=== PATIENT | male | born 1985 | race Caucasian/White ===

== ENCOUNTER 2022-03-14 18:38 | Emergency (ER) | payer BC ==
[2022-03-14 19:02] VITALS: TEMP 98.1
[2022-03-14] MEDS ORDERED: SODIUM CHLORIDE 0.9% 1,000 ML IV STA (19:07)
[2022-03-14] MEDS ORDERED: KETOROLAC 15 MG/ML 1 ML VIAL IVP STA (19:47)
--- NOTE | 2022-03-14 19:48 | ED ---
Abdominal Pain HPI - General Chief Complaint: Abdominal Pain Stated Complaint: rt sided flank pain Time Seen by Provider: 03/14/22 19:06 Source: patient, RN notes reviewed Mode of arrival: ambulatory Limitations: no limitations - History of Present Illness Initial Comments: This is a pleasant 36-year-old male who comes in complaining of recurrent right flank and right CVA type pain which started on February 17. No alleviating factors. It might be exacerbated by food. Patient states she is had some mild constipation which she is using laxatives for. No problems with urination. No fever. No headache, no fever or chills, no changes in vision or hearing, no sore throat or difficulty with speech, no neck pain, no chest pain or shortness of breath, no abdominal pain, no vomiting, no changes in urination, no numbness or tingling, no extremity pain, no skin rashes or lesions. Past medical, surgical, social, and family history reviewed. - Related Data Home Medications Medication Instructions Recorded Confirmed Albuterol Sulfate [Albuterol 2 puff PO RT-Q6H PRN 03/14/22 03/14/22 Sulfate Hfa] Buprenorphine HCl/Naloxone HCl 0.5 film SL BID 03/14/22 03/14/22 [Suboxone 8 mg-2 mg Sl Film] Previous Rx's Medication Instructions Recorded Ketorolac [Toradol] 10 mg PO Q6HR PRN #16 tab 03/14/22 Sulfamethox-Tmp 800-160Mg [Bactrim 1 tab PO Q12HR #14 tab 03/14/22 DS 800-160 mg] Tamsulosin [Flomax] 0.4 mg PO DAILY #5 cap 03/14/22 Allergies Allergy/AdvReac Type Severity Reaction Status Date / Time No Known Allergies Allergy Verified 03/14/22 22:17 Review of Systems ROS Statement: Those systems with pertinent positive or pertinent negative responses have been documented in the HPI. ROS Other: All systems not noted in ROS Statement are negative. Past Medical History Past Medical History: No Reported History History of Any Multi-Drug Resistant Organisms: None Reported Additional Past Surgical History / Comment(s): VOCAL CORD SURGERY Past Psychological History: No Psychological Hx Reported Smoking Status: Never smoker Past Alcohol Use History: None Reported Past Drug Use History: None Reported General Exam Limitations: no limitations General appearance: alert, in no apparent distress Head exam: Present: atraumatic, normocephalic, normal inspection Eye exam: Present: normal appearance, PERRL, EOMI. Absent: scleral icterus, conjunctival injection, periorbital swelling ENT exam: Present: normal exam, mucous membranes moist Neck exam: Present: normal inspection, full ROM. Absent: tenderness, meningismus, lymphadenopathy Respiratory exam: Present: normal lung sounds bilaterally. Absent: respiratory distress, wheezes, rales, rhonchi, stridor Cardiovascular Exam: Present: regular rate, normal rhythm, normal heart sounds. Absent: systolic murmur, diastolic murmur, rubs, gallop, clicks GI/Abdominal exam: Present: soft, tenderness (Patient has significant tenderness to the right upper quadrant on palpation with guarding.), normal bowel sounds. Absent: distended, guarding, rebound, rigid Extremities exam: Present: normal inspection, full ROM, normal capillary refill. Absent: tenderness, pedal edema, joint swelling, calf tenderness Back exam: Present: normal inspection, CVA tenderness (R). Absent: CVA tenderness (L) Neurological exam: Present: alert, oriented X3, CN II-XII intact Psychiatric exam: Present: normal affect, normal mood Skin exam: Present: warm, dry, intact, normal color. Absent: rash Course Vital Signs 03/14/22 03/14/22 03/14/22 18:58 21:08 22:38 Temperature 98.1 F Pulse Rate 94 68 100 Respiratory 16 16 20 Rate Blood Pressure 144/86 135/92 139/77 O2 Sat by Pulse 97 98 97 Oximetry - Reevaluation(s) Reevaluation #1: 03/14/22 22:18 Patient's urine came back with a significant number of white blood cells. There was also twice as many red blood cells. This does raise a suspicion of ureteral stone. Patient also had some haziness on ultrasound dictating probable hydronephrosis of the right kidney. Computed tomography scan abdomen and pel vis ordered. Rocephin 1 g IV push ordered. Reevaluation #2: 03/14/22 23:43 Patient much improved at discharge. Medical Decision Making - Medical Decision Making This is a 36-year-old male who presents with recurrent right upper quadrant and right flank pain. Seems to be consistent with gallbladder disease. Patient relates this to eating at times. Ureteral colic also within the differential. It does not appear to be consistent with cardiopulmonary disease. We'll order a gallbladder ultrasound, x-ray, abdominal workup, plan for reevaluation. Not consistent with vascular etiology.. - Lab Data Result diagrams: 03/14/22 19:28 03/14/22 19: Lab Results 03/14/22 03/14/22 03/14/22 Range/Units 19:28 19:28 19:28 WBC 11.4 H (3.8-10.6) k/uL RBC 4.90 (4.30-5.90) m/uL Hgb 13.1 (13.0-17.5) gm/dL Hct 41.0 (39.0-53.0) % MCV 83.8 (80.0-100.0) fL MCH 26.8 (25.0-35.0) pg MCHC 32.0 (31.0-37.0) g/dL RDW 13.5 (11.5-15.5) % Plt Count 284 (150-450) k/uL MPV 7.3 Neutrophils % 72 % Lymphocytes % 17 % Monocytes % 4 % Eosinophils % 5 % Basophils % 1 % Neutrophils # 8.2 H (1.3-7.7) k/uL Lymphocytes # 1.9 (1.0-4.8) k/uL Monocytes # 0.5 (0-1.0) k/uL Eosinophils # 0.6 (0-0.7) k/uL Basophils # 0.1 (0-0.2) k/uL Sodium 141 (137-145) mmol/L Potassium 4.2 (3.5-5.1) mmol/L Chloride 100 (98-107) mmol/L Carbon Dioxide 27 (22-30) mmol/L Anion Gap 14 mmol/L BUN 14 (9-20) mg/dL Creatinine 0.99 (0.66-1.25) mg/dL Est GFR (CKD-EPI)AfAm >90 (>60 ml/min/1.73 sqM) Est GFR (CKD-EPI)NonAf >90 (>60 ml/min/1.73 sqM) Glucose 110 H (74-99) mg/dL Calcium 9.7 (8.4-10.2) mg/dL Total Bilirubin 0.3 (0.2-1.3) mg/dL AST 29 (17-59) U/L ALT 14 (4-49) U/L Alkaline Phosphatase 69 (38-126) U/L Total Protein 7.9 (6.3-8.2) g/dL Albumin 4.9 (3.5-5.0) g/dL Lipase 22 L (23-300) U/L Urine Color Yellow Urine Appearance Cloudy (Clear) Urine pH 6.0 (5.0-8.0) Ur Specific [place] 1.020 (1.001-1.035) Urine Protein 1+ H (Negative) Urine Glucose (UA) Negative (Negative) Urine Ketones Negative (Negative) Urine Blood Moderate H (Negative) Urine Nitrite Negative (Negative) Urine Bilirubin Negative (Negative) Urine Urobilinogen <2.0 (<2.0) mg/dL Ur Leukocyte Esterase Small H (Negative) Urine RBC 41 H (0-5) /hpf Urine WBC 22 H (0-5) /hpf Uric Acid Crystals Few H (None) /hpf Urine Mucus Moderate H (None) /hpf Disposition Clinical Impression: Ureterolithiasis, Renal colic on right side, Uric acid crystallopathy Disposition: HOME SELF-CARE Condition: Good Instructions (If sedation given, give patient instructions): Kidney Stones (ED) Additional Instructions: Call tomorrow morning to make an appointment with the urologist. Drink plenty of clear fluids as discussed. Urinalysis shows uric acid crystals this may be assessed by the urologist. Take antibiotics as directed. Follow-up with your regular physician as directed. Return to the ER immediately if any symptoms worsen, new symptoms arise, or any other problems develop. STRAIN urine as discussed, collect the stone you can take it to urology appointment with you. Prescriptions: Sulfamethox-Tmp 800-160Mg [Bactrim DS 800-160 mg] 1 tab PO Q12HR #14 tab Tamsulosin [Flomax] 0.4 mg PO DAILY #5 cap Ketorolac [Toradol] 10 mg PO Q6HR PRN #16 tab PRN Reason: Pain Is patient prescribed a controlled substance at d/c from ED?: No Referrals: Beny Wang MD [STAFF PHYSICIAN] - 03/19/22 Time of Disposition: 23:43
[2022-03-14 19:49] LABS: ALT 14 U/L (4-49); AST 29 U/L (17-59); African American GFR (CKD) >90 (>60 ml/min/1.73 sqM); Albumin 4.9 g/dL (3.5-5.0); Alkaline Phosphatase 69 U/L (38-126); Anion Gap 14 mmol/L; Blood Urea Nitrogen 14 mg/dL (9-20); Calcium 9.7 mg/dL (8.4-10.2); Carbon Dioxide 27 mmol/L (22-30); Chloride 100 mmol/L (98-107); Glucose 110 mg/dL (74-99); Lipase 22 U/L (23-300); Non-African American GFR(CKD) >90 (>60 ml/min/1.73 sqM); Potassium 4.2 mmol/L (3.5-5.1); Sodium 141 mmol/L (137-145); Total Bilirubin 0.3 mg/dL (0.2-1.3); Total Protein 7.9 g/dL (6.3-8.2)
[2022-03-14 20:01] LABS: Basophils # (A) 0.1 k/uL (0-0.2); Basophils % (A) 1 %; Eosinophils # (A) 0.6 k/uL (0-0.7); Eosinophils % (A) 5 %; HGB 13.1 gm/dL (13.0-17.5); Lymphocytes # (A) 1.9 k/uL (1.0-4.8); Lymphocytes % (A) 17 %; MCH 26.8 pg (25.0-35.0); MCV 83.8 fL (80.0-100.0); Mean Platelet Volume 7.3; Monocytes # (A) 0.5 k/uL (0-1.0); Monocytes % (A) 4 %; Neutrophils # (A) 8.2 k/uL (1.3-7.7); Neutrophils % (A) 72 %; Platelet Count 284 k/uL (150-450); RDW 13.5 % (11.5-15.5); WBC 11.4 k/uL (3.8-10.6)
[2022-03-14 20:25] LABS: Appearance,Urine Cloudy (Clear); Bilirubin,Urine Negative (Negative); Blood,Urine Moderate (Negative); Color,Urine Yellow; Glucose,Urine (UA) Negative (Negative); Ketones,Urine Negative (Negative); Leukocyte Esterase,Urine Small (Negative); Mucus,Urine Moderate /hpf; Nitrite,Urine Negative (Negative); Protein,Urine 1+ (Negative); RBC,Urine 41 /hpf (0-5); Uric Acid Crystals,Urine Few /hpf; Urobilinogen,Urine <2.0 mg/dL (<2.0); WBC,Urine 22 /hpf (0-5)
--- NOTE | 2022-03-14 20:51 | XR ---
EXAMINATION TYPE: XR KUB DATE OF EXAM: 03/14/2022 8:08 PM INDICATION: Patient age:Male; 36 years old; Reason for study: Upper quadrant abdominal pain and right flank pain; COMPARISON: None. TECHNIQUE: One radiographic view of the abdomen was obtained. FINDINGS: The bowel gas pattern is nonspecific without dilated loops of small or large bowel. There i s no evidence for organomegaly or pneumoperitoneum. The osseous structures are intact. No abnormal calcifications are present. Fecal material and gas are demonstrated throughout the colon and rectum. IMPRESSION: Nonspecific bowel gas pattern without radiographic evidence for acute process.
--- NOTE | 2022-03-14 22:15 | US ---
EXAMINATION TYPE: US gallbladder DATE OF EXAM: 03/14/2022 COMPARISON: NONE CLINICAL HISTORY: Right upper quadrant abdominal pain. right flank pain TECHNIQUE: Multiple sonographic images of the right upper quadrant are obtained. FINDINGS: EXAM MEASUREMENTS: Liver Length: 16.7 cm Gallbladder Wall: 0.32 cm CBD: 0.32 cm Right Kidney: 12.6 x 5.3 x 5.3 cm PERSONAL COUNSELOR NOTES: Pancreas: Tail obscured by overlying bowel gas. Parts visualized wnl Liver: heterogeneous Gallbladder: Partially contracted - patient states he ate around 3 hours ago. Evidence for sonographic Osorio's sign: No CBD: wnl Right Kidney: Mild hyrdonephrosis visualized IMPRESSION: No gallstones or dilated ducts. There is some fullness of the right renal pelvis and right-sided mild hydronephrosis.
[2022-03-14] MEDS ORDERED: cefTRIAXone IN SWFI 1,000 MG/10 ML SYRINGE IVP STA (22:17)
[2022-03-14 22:40] VITALS: BP 139/77; PULSE 100; RESP 20
--- NOTE | 2022-03-14 23:12 | CT ---
EXAMINATION TYPE: CT abdomen pelvis wo con DATE OF EXAM: 03/14/2022 COMPARISON: None HISTORY: Right side flank Pain CT DLP: 753.3 mGycm Automated exposure control for dose reduction was used. Images obtained from the diaphragm to the floor the pelvis with no contrast. The lung bases are clear. No pleural effusion. Heart size is normal. No pericardial effusion. Liver spleen stomach pancreas and gallbladder appear normal. Bile duct are not dilated. There is no adrenal mass. Kidneys have normal size and contour. There is right-sided hydronephrosis a nd hydroureter. There is obstructing 3 mm calculus at the right ureterovesical junction. Bladder dist ends smoothly. No inguinal hernia. No free fluid in the pelvis. No pelvic mass. No sign of thickened appendix. Appendix partially seen and appears normal. No mesenteric edema. No ascites or free air. No sign of a bowel obstruction. The lumbar vertebrae hav e normal alignment. No compression fracture. Bony pelvis is intact. The hip joints are intact. IMPRESSION: Obstructing calculus distal right ureter at the ureterovesical junction. Right-sided hydronephrosis a nd hydroureter. No other calculus seen.
[2022-03-14] MEDS ORDERED: TAMSULOSIN 0.4 MG CAP.ER.24H PO STA (23:31)
== END 2022-03-15 00:32 | disposition home or self-care (01) ==
LOC: EC 18:38
DX: N20.1 Calculus of ureter (principal); N23 Unspecified renal colic; M11.9 Crystal arthropathy, unspecified
CPT/HCPCS: 36415; 80053; 83690; 85025; 81001; 87086; 74018; 76705; 74176; 99284; 96374; 96375; 96361; J0696; J1885

== ENCOUNTER 2023-08-15 09:32 | Observation (INO) | payer BC, OTHER ==
[2023-08-15] MEDS: IPRATROPIUM-ALBUTEROL 3 ML NEB INHALATION STA (10:18)
[2023-08-15] MEDS: MAGNESIUM SULFATE-D5W PMX 1 GM in DEXTROSE/WATER 1 100ML.BAG IVPB STA (10:22)
[2023-08-15] MEDS: SODIUM CHLORIDE 0.9% 1,000 ML IV STA ×2 (10:23→12:24)
[2023-08-15] MEDS: methylPREDNISolone SOD SUCCI 125 MG/2 ML VIAL IV STA (10:23)
[2023-08-15 10:24] LABS: Basophils # (A) 0.1 k/uL (0-0.2); Basophils % (A) 1 %; Eosinophils # (A) 0.6 k/uL (0-0.7); Eosinophils % (A) 4 %; HCT 42.1 % (39.0-53.0); HGB 13.7 gm/dL (13.0-17.5); Lymphocytes % (A) 7 %; MCH 27.1 pg (25.0-35.0); MCHC 32.5 g/dL (31.0-37.0); MCV 83.2 fL (80.0-100.0); Monocytes # (A) 0.9 k/uL (0-1.0); Monocytes % (A) 6 %; Neutrophils # (A) 12.1 k/uL (1.3-7.7); Neutrophils % (A) 81 %; Platelet Count 274 k/uL (150-450); RBC 5.05 m/uL (4.30-5.90); RDW 13.7 % (11.5-15.5); WBC 14.8 k/uL (3.8-10.6)
[2023-08-15 10:33] LABS: ALT 32 U/L (4-49); AST 37 U/L (17-59); African American GFR (CKD) >90 (>60 ml/min/1.73 sqM); Albumin 4.8 g/dL (3.5-5.0); Alkaline Phosphatase 79 U/L (38-126); Anion Gap 12 mmol/L; Blood Urea Nitrogen 15 mg/dL (9-20); Calcium 9.5 mg/dL (8.4-10.2); Carbon Dioxide 25 mmol/L (22-30); Chloride 106 mmol/L (98-107); Glucose 112 mg/dL (74-99); Magnesium 1.8 mg/dL (1.6-2.3); Non-African American GFR(CKD) >90 (>60 ml/min/1.73 sqM); Potassium 3.7 mmol/L (3.5-5.1); Sodium 143 mmol/L (137-145); Total Bilirubin 0.6 mg/dL (0.2-1.3); Total Protein 8.4 g/dL (6.3-8.2)
--- NOTE | 2023-08-15 10:49 | XR ---
EXAMINATION TYPE: XR chest 2V DATE OF EXAM: 08/15/2023 COMPARISON: None INDICATION: Difficulty breathing, asthma TECHNIQUE: Frontal and lateral views of the chest are obtained. FINDINGS: The heart size is normal. The pulmonary vasculature is normal. The lungs are clear. IMPRESSION: 1. No acute pulmonary process.
[2023-08-15] MEDS ORDERED: NALOXONE 0.4 MG/ML 1 ML VIAL IV PRN (11:26)
--- NOTE | 2023-08-15 13:05 | ED ---
General Adult HPI - General Chief complaint: Shortness of Breath Stated complaint: SOB, chest pain, asthma Time Seen by Provider: 08/15/23 09:43 Source: patient, family, RN notes reviewed, old records reviewed Mode of arrival: ambulatory Limitations: no limitations - History of Present Illness Initial comments: Patient is a 38-year-old male with past medical history remarkable for asthma, presents emergency department for asthma exacerbation. Has been ongoing for the last 2 days or so. Has been previously admitted to the ICU for asthma. States he has not been intubated in the past and usually does not require BiPAP. Presents for further evaluation at this time. States his home breathing treatments have not been helping with his dyspnea. Denies productive cough. Denies any sick contacts. States he feels like he has chest congestion. En dorses chest tightness. Denies nausea, vomiting, diarrhea. Presents for further evaluation. - Related Data Home Medications Medication Instructions Recorded Confirmed Albuterol Sulfate [Albuterol 2 puff PO RT-Q6H PRN 03/14/22 08/15/23 Sulfate Hfa] Albuterol Nebulized [Ventolin 2.5 mg INHALATION RT-Q4H PRN 08/15/23 08/15/23 Nebulized] Buprenorphine HCl/Naloxone HCl 1 film SL DAILY 08/15/23 08/15/23 [Suboxone 2 mg-0.5 mg Sl Film] Allergies Allergy/AdvReac Type Severity Reaction Status Date / Time lorazepam [From Ativan] AdvReac Unknown Verified 08/15/23 11:43 Review of Systems ROS Statement: Those systems with pertinent positive or pertinent negative responses have been documented in the HPI. Review of Systems: CONST: Denies fever EYES: Denies blurry vision ENT: Denies nasal congestion C/V: Denies Chest pain RESP: Endorses dyspnea GI: Denies abdominal pain : Denies dysuria SKIN: Denies rash. MSK: Denies joint pain. NEURO: Denies headache ROS Other: All systems not noted in ROS Statement are negative. Past Medical History Past Medical History: Asthma History of Any Multi-Drug Resistant Organisms: None Reported Additional Past Surgical History / Comment(s): VOCAL CORD SURGERY Past Psychological History: No Psychological Hx Reported Smoking Status: Never smoker Past Alcohol Use History: None Reported Past Drug Use History: None Reported General Exam - General Exam Comments Initial Comments: General: Appears in mild respiratory distress. HEAD: Normal with no signs of head trauma. EYES: PERRLA, EOMI, conjunctiva normal, no discharge. ENT: Hearing grossly intact, normal oropharynx. RESPIRATORY: Tight breath sounds bilaterally with minimal wheezing. Hypoxic on room air to the low 90%. Mildly increased work of breathing. C/V: Tachycardic. S1 and S2 auscultated, no edema, peripheral pulses 2+ and intact throughout ABD: Abd is soft, nontender, nondistended EXT: Normal range of motion, no obvious deformity SKIN: No rashes or lesions observed on exposed skin. NEURO: Alert and oriented x 4. Limitations: no limitations Course Vital Signs 08/15/23 08/15/23 08/15/23 09:37 10:00 10:20 Temperature 98.5 F Pulse Rate 115 H 111 H 120 H Respiratory 26 H 12 Rate Blood Pressure 165/112 141/94 O2 Sat by Pulse 95 94 L Oximetry 08/15/23 08/15/23 08/15/23 10:35 11:00 12:00 Temperature Pulse Rate 121 H 108 H Respiratory 12 Rate Blood Pressure 121/87 122/92 O2 Sat by Pulse 94 L 89 L Oximetry 08/15/23 12:02 Temperature Pulse Rate Respiratory Rate Blood Pressure O2 Sat by Pulse 94 L Oximetry Medical Decision Making - Medical Decision Making Was pt. sent in by a medical professional or institution (YUE Moreno, FRYLINE ATTENDANT, urgent care, hospital, or long-term...) When possible be specific @ -No Did you speak to anyone other than the patient for history (EMS, parent, family, police, friend...)? What history was obtained from this source @ -No Did you review nursing and triage notes (agree or disagree)? Why? @ -I reviewed and agree with nursing and triage notes Were old charts reviewed (outside hosp., previous admission, EMS record, old EKG, old radiological studies, urgent care reports/EKG's, long-term records)? Report findings @ -Old charts reviewed Differential Diagnosis (chest pain, altered mental status, abdominal pain women, abdominal pain men, vaginal bleeding, weakness, fever, dyspnea, syncope, headache, dizziness, GI bleed, back pain, seizure, CVA, palpatations, mental health, musculoskeletal)? @ -Differential Dyspnea: Coronary syndrome, arrhythmia, tamponade, asthma, COPD, pulmonary embolism, pneumonia, pneumothorax, pulmonary effusion, anaphylaxis, diabetic ketoacidosis, flailed chest, pulmonary contusion, diaphragmatic rupture, anemia, neuromuscular, this is not meant to be an all-inclusive list. EKG interpreted by me (3pts min.). @ -As above X-rays interpreted by me (1pt min.). @ -Chest x-ray reveals no findings concerning for acute cardiopulmonary process or infection. CT interpreted by me (1pt min.). @ -None done U/S interpreted by me (1pt. min.). @ -None done What testing was considered but not performed or refused? (CT, X-rays, U/S, labs)? Why? @ -None What meds were considered but not given or refused? Why? @ -None Did you discuss the management of the patient with other professionals (professionals i.e. , PA, FRYLINE ATTENDANT, lab, RT, psych nurse, social science analyst, dock grader, teacher, seal delivery vehicle officer, case management assistant)? Give summary @ -I spoke with the admitting physician, Dr. Armstrong who accepted the admission. Was smoking cessation discussed for >3mins.? @ -No Was critical care preformed (if so, how long)? @ -No Were there social determinants of health that impacted care today? How? ( Homelessness, low income, unemployed, alcoholism, drug addiction, transportation, low edu. Level, literacy, decrease access to med. care, fdc, rehab)? @ -No Was there de-escalation of care discussed even if they declined (Discuss DNR or withdrawal of care, Hospice)? DNR status @ -No What co-morbidities impacted this encounter? (DM, HTN, Smoking, COPD, CAD, Cancer, CVA, ARF, Chemo, Hep., AIDS, mental health diagnosis, sleep apnea, morbid obesity)? @ -Asthma Was patient admitted / discharged? Hospital course, mention meds given and route, prescriptions, significant lab abnormalities, going to OR and other pertinent info. @ -Based on the patient's presentation and physical exam, presents emergency department asthma exacerbation. Has required admission in the past including ICU but has never been intubated. Vital signs remarkable for respiratory distress with tight breath sounds, and mild hypoxia on room air. We will obtain dyspnea workup, as well as symptomatically treat the patient with IV magnesium, fluids, steroids, breathing treatments. Patient was in agreement this plan. EKG showed no signs of acute ischemia. Patient's laboratory studies remarkable for mild leukocytosis of 14 which is likely reactive as well as mild lactic acidosis was 2.4 which is also likely reactive secondary to increased work of breathing. Viral swabs negative. Chest x-ray reveals no evidence of acute infection. On reevaluation, patient appears to be improving, however is still diffusely w heezy bilaterally. After multiple breathing treatments, I did recommend admission at this time. He was in agreement this plan. He will be admitted to observation for asthma exacerbation. We will continue with IV steroids, IV fluids, as well as breathing treatments. I spoke with the admitting physician, Dr. Armstrong who accepted the admission. Dr. Hayes of pulmonology consulted. Undiagnosed new problem with uncertain prognosis? @ -No Drug Therapy requiring intensive monitoring for toxicity (Heparin, Nitro, Insulin, Cardizem)? @ -No Were any procedures done? @ -No Diagnosis/symptom? @ -Asthma Acute, or Chronic, or Acute on Chronic? @ -Acute Uncomplicated (without systemic symptoms) or Complicated (systemic symptoms)? @ -Complicated Side effects of treatment? @ -No Exacerbation, Progression, or Severe Exacerbation? @ -Exacerbation Poses a threat to life or bodily function? How? (Chest pain, USA, ID, pneumonia, PE, COPD, DKA, ARF, appy, cholecystitis, CVA, Diverticulitis, Homicidal, Suicidal, threat to staff... and all critical care pts) @ -Yes - Lab Data Result diagrams: 08/15/23 10:09 08/15/23 10:09 Lab Results 08/15/23 08/15/23 08/15/23 Range/Units 10:09 10:09 10:09 WBC 14.8 H (3.8-10.6) k/uL RBC 5.05 (4.30-5.90) m/uL Hgb 13.7 (13.0-17.5) gm/dL Hct 42.1 (39.0-53.0) % MCV 83.2 (80.0-100.0) fL MCH 27.1 (25.0-35.0) pg MCHC 32.5 (31.0-37.0) g/dL RDW 13.7 (11.5-15.5) % Plt Count 274 (150-450) k/uL MPV 8.0 Neutrophils % 81 % Lymphocytes % 7 % Monocytes % 6 % Eosinophils % 4 % Basophils % 1 % Neutrophils # 12.1 H (1.3-7.7) k/uL Lymphocytes # 1.0 (1.0-4.8) k/uL Monocytes # 0.9 (0-1.0) k/uL Eosinophils # 0.6 (0-0.7) k/uL Basophils # 0.1 (0-0.2) k/uL Sodium 143 (137-145) mmol/L Potassium 3.7 (3.5-5.1) mmol/L Chloride 106 (98-107) mmol/L Carbon Dioxide 25 (22-30) mmol/L Anion Gap 12 mmol/L BUN 15 (9-20) mg/dL Creatinine 0.65 L (0.66-1.25) mg/dL Est GFR (CKD-EPI)AfAm >90 (>60 ml/min/1.73 sqM) Est GFR (CKD-EPI)NonAf >90 (>60 ml/min/1.73 sqM) Glucose 112 H (74-99) mg/dL Lactic Ac Sepsis Rflx Plasma Lactic Acid Eliezer 2.4 H* (0.7-2.0) mmol/L Calcium 9.5 (8.4-10.2) mg/dL Magnesium 1.8 (1.6-2.3) mg/dL Total Bilirubin 0.6 (0.2-1.3) mg/dL AST 37 (17-59) U/L ALT 32 (4-49) U/L Alkaline Phosphatase 79 (38-126) U/L Total Protein 8.4 H (6.3-8.2) g/dL Albumin 4.8 (3.5-5.0) g/dL Influenza Type A (PCR) (Not Detectd) Influenza Type B (PCR) (Not Detectd) RSV (PCR) (Not Detectd) SARS-CoV-2 (PCR) (Not Detectd) 08/15/23 08/15/23 Range/Units 10:09 10:34 WBC (3.8-10.6) k/uL RBC (4.30-5.90) m/uL Hgb (13.0-17.5) gm/dL Hct (39.0-53.0) % MCV (80.0-100.0) fL MCH (25.0-35.0) pg MCHC (31.0-37.0) g/dL RDW (11.5-15.5) % Plt Count (150-450) k/uL MPV Neutrophils % % Lymphocytes % % Monocytes % % Eosinophils % % Basophils % % Neutrophils # (1.3-7.7) k/uL Lymphocytes # (1.0-4.8) k/uL Monocytes # (0-1.0) k/uL Eosinophils # (0-0.7) k/uL Basophils # (0-0.2) k/uL Sodium (137-145) mmol/L Potassium (3.5-5.1) mmol/L Chloride (98-107) mmol/L Carbon Dioxide (22-30) mmol/L Anion Gap mmol/L BUN (9-20) mg/dL Creatinine (0.66-1.25) mg/dL Est GFR (CKD-EPI)AfAm (>60 ml/min/1.73 sqM) Est GFR (CKD-EPI)NonAf (>60 ml/min/1.73 sqM) Glucose (74-99) mg/dL Lactic Ac Sepsis Rflx Y Plasma Lactic Acid Eliezer (0.7-2.0) mmol/L Calcium (8.4-10.2) mg/dL Magnesium (1.6-2.3) mg/dL Total Bilirubin (0.2-1.3) mg/dL AST (17-59) U/L ALT (4-49) U/L Alkaline Phosphatase (38-126) U/L Total Protein (6.3-8.2) g/dL Albumin (3.5-5.0) g/dL Influenza Type A (PCR) Not Detected (Not Detectd) Influenza Type B (PCR) Not Detected (Not Detectd) RSV (PCR) Not Detected (Not Detectd) SARS-CoV-2 (PCR) Not Detected (Not Detectd) - EKG Data -: EKG Interpreted by Me EKG Comments: 12-lead Electrocardiogram Interpretation Note EKG was reviewed and interpreted by myself. 12-lead ECG performed at 0947 is interpreted by me as revealing tachycardia at a rate of 110 beats per minute. [place] is normal. MO interval is 143 ms, QRS duration is 80 ms, QTc is 388 ms.. There were no ST or T wave abnormalities to suggest myocardial ischemia or injury. R wave progression across the precordium was satisfactory. By my interpretation this EKG is non-diagnostic for acute ischemia. Disposition Clinical Impression: Asthma exacerbation Disposition: ADMITTED IP TO THIS HOSP Condition: Stable Time of Disposition: 11:20
[2023-08-15] MEDS: IPRATROPIUM-ALBUTEROL 3 ML NEB INHALATION SCH ×2 (14:36→19:36)
--- NOTE | 2023-08-15 14:59 | P.CNPUL ---
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 He has been not not been following with a primary care physician due to lack of insurance. He does have a nebulizer and albuterol solution and some older albuterol HFA available. He presented here to the emergency room earlier this morning with complaints of increasing shortness of breath chest tightness and wheezing. He had a sore throat a couple of days ago. He also was exposed to significant drywall dust at his place of work. No fever or chills. Nonproductive cough. No hemoptysis. Chest x-ray revealed no acute pulmonary process. White count 14.8. Hemoglobin 13.7. Platelets 274. Sodium 143. Potassium 3.7. Bicarb 25. BUN 15. Creatinine 0.65. Glucose 112. Viral screen negative. He is seen today in consultation in the emergency department. Currently sitting up in a chair. Awake and alert in no acute distress. He is breathing a bit easier this afternoon. He was initiated on the neb inhalations, Tessalon Perles and Solu- Medrol. He has normal saline at 75 MLS per hour. Review of Systems REVIEW OF SYSTEMS: CONSTITUTIONAL: Denies any recent significant weight loss or weight gain. EYES: Denies change in vision. EARS, NOSE, MOUTH, THROAT: Denies headaches, positive for sore throat. CARDIOVASCULAR: Denies chest pain, palpitations or syncopal episodes. RESPIRATORY: Positive for shortness of breath, cough, congestion no hemoptysis. GASTROINTESTINAL: Denies change in appetite, denies abdominal pain GENITOURINARY: Denies hematuria, denies infections. MUSKULOSKELETAL: Denies pain, denies swelling. INTEGUMENTARY: Denies rash, denies eczema. NEUROLOGICAL: Denies recent memory loss, no recent seizure activity. PSYCHIATRIC: Denies anxiety, denies depression. HEMATOLOGIC/LYMPHATIC: Denies anemia, denies enlarged lymph nodes. Past Medical History Past Medical History: Asthma History of Any Multi-Drug Resistant Organisms: None Reported Additional Past Surgical History / Comment(s): VOCAL CORD SURGERY Past Psychological History: No Psychological Hx Reported Smoking Status: Never smoker Past Alcohol Use History: None Reported Past Drug Use History: None Reported Medications and Allergies Home Medications Medication Instructions Recorded Confirmed Type Albuterol Sulfate [Albuterol 2 puff PO RT-Q6H PRN 03/14/22 08/15/23 History Sulfate Hfa] Albuterol Nebulized [Ventolin 2.5 mg INHALATION RT-Q4H PRN 08/15/23 08/15/23 History Nebulized] Buprenorphine HCl/Naloxone HCl 1 film SL DAILY 08/15/23 08/15/23 History [Suboxone 2 mg-0.5 mg Sl Film] Allergies Allergy/AdvReac Type Severity Reaction Status Date / Time lorazepam [From Ativan] AdvReac Unknown Verified 08/15/23 11:43 Physical Exam Vitals: Vital Signs Temp Pulse Resp BP Pulse Ox 08/15/23 14:43 120 H 08/15/23 12:02 94 L 08/15/23 12:00 122/92 89 L 08/15/23 11:00 108 H 12 121/87 94 L 08/15/23 10:35 121 H 08/15/23 10:20 120 H 08/15/23 10:00 111 H 12 141/94 94 L 08/15/23 09:37 98.5 F 115 H 26 H 165/112 95 Intake and Output 08/14/23 08/15/23 08/15/23 22:59 06:59 14:59 Other: Weight 102.058 kg GENERAL EXAM: Alert, pleasant 38-year-old male, on room air, comfortable in no apparent distress. HEAD: Normocephalic. EYES: Normal reaction of pupils, equal size. NOSE: Clear with pink turbinates. THROAT: No erythema or exudates. NECK: No masses, no JVD. CHEST: No chest wall deformity. LUNGS: Equal air entry with bilateral end expiratory wheeze. CVS: S1 and S2 normal with no audible murmur, regular rhythm. Tachycardic. ABDOMEN: No hepatosplenomegaly, normal bowel sounds, no guarding or rigidity. SPINE: No scoliosis or deformity SKIN: No rashes CENTRAL NERVOUS SYSTEM: No focal deficits, tone is normal in all 4 extremities. EXTREMITIES: There is no peripheral edema. No clubbing, no cyanosis. Peripheral pulses are intact. Results - Laboratory Findings CBC and BMP: 08/15/23 10:09 08/15/23 10:09 Abnormal lab findings: Abnormal Labs 08/15/23 08/15/23 08/15/23 10:09 10:09 10:09 WBC 14.8 H Neutrophils # 12.1 H Creatinine 0.65 L Glucose 112 H Plasma Lactic Acid Eliezer 2.4 H* Total Protein 8.4 H 08/15/23 12:43 WBC Neutrophils # Creatinine Glucose Plasma Lactic Acid Eliezer 2.8 H* Total Protein - Diagnostic Findings Chest x-ray: image reviewed Assessment and Plan Assessment: Acute exacerbation of mild intermittent chronic bronchial asthma. Viral screen negative. Chest x-ray is clear History of papilloma of the vocal cords with previous surgery Former smoker quit 5 years ago Plan: The patient was seen and evaluated Chest x-ray, labs and medications reviewed Continue DuoNeb inhalations Add Symbicort Continue Solu-Medrol 60 mg every 6 hours Currently stable and on room air May benefit from outpatient workup including full pulmonary function testing We will continue to follow and make further recommendations based on his clinical status I have personally seen and examined the patient, performed the documentation and the assessment and plan as written. Number of minutes spent on the visit: 20.
[2023-08-15] MEDS: BENZONATATE 100 MG CAP PO PRN (15:37)
[2023-08-15] MEDS ORDERED: methylPREDNISolone SOD SUCCI 40 MG/ML 1 ML VIAL IV SCH (16:00)
--- NOTE | 2023-08-15 17:56 | P.HPIM ---
History of Present Illness H&P Date: 08/15/23 Chief Complaint: dyspnea 38-year-old male with a medical history of chronic bronchial asthma presented for evaluation of dyspnea. 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 He reports that the symptoms did go away, but he started to develop progressive dyspnea. He has had this before and was treated for asthma exacerbation. At home he takes albuterol inhaler as needed, but was not able to improve his shortness of breath at rest and therefore presented to the emergency room for further evaluation. He otherwise denies fevers, chills, cough, abdominal pain. In the emergency room, patient was afebrile, 127/67, heart rate 117, 96% on room air.CBC was remarkable for leukocytosis of 14.8. Basic metabolic panel was unremarkable. Liver function test showed elevated total protein at 8.4. Lactic acid was 2.4, the increased to 2.8 then 4.4 with the initiation of nebulizer treatment. Influenza A, B, RSV, COVID were negative. EKG demonstrated sinus tachycardia without evidence of ischemia. Chest x-ray did not demonstrate any acute pulmonary process. Pulmonology was consulted and agreed with the management as initiated on admission including steroids, nebulizers. All Systems reviewed and pertinent positives and negatives noted in HPI, all other symptoms are negative Gen: In NAD, non-toxic HEENT: normocephalic, atraumatic, hearing acuity is intant, mucous membranes moist CVS: perfusing all extremities well, no pitting edema, Respiratory: symmetric chest expansion, no accessory muscle use, diffuse end expiratory wheezing GI: soft, NTTP, ND, : no suprapubic tenderness, no CVA tenderness MSK/Derm: no rashes, cyanosis Neuro: CN II-XII intact, no motor weakness, Psych: cooperative, euthymic mood, judgment and insight is intact Labs and imaging as above Assessment/plan: Acute asthma exacerbation -Appreciate pulmonology recommendations -Continue DuoNebs scheduled -Continue Solu-Medrol 60 mg IV every 6 hours -CBC, basic metabolic panel tomorrow morning -Initiate Symbicort -Peak flows 4 times daily Patient is full code Past Medical History Past Medical History: Asthma History of Any Multi-Drug Resistant Organisms: None Reported Additional Past Surgical History / Comment(s): VOCAL CORD SURGERY Past Psychological History: No Psychological Hx Reported Smoking Status: Never smoker Past Alcohol Use History: None Reported Past Drug Use History: None Reported Medications and Allergies Home Medications Medication Instructions Recorded Confirmed Type Albuterol Sulfate [Albuterol 2 puff PO RT-Q6H PRN 03/14/22 08/15/23 History Sulfate Hfa] Albuterol Nebulized [Ventolin 2.5 mg INHALATION RT-Q4H PRN 08/15/23 08/15/23 History Nebulized] Buprenorphine HCl/Naloxone HCl 1 film SL DAILY 08/15/23 08/15/23 History [Suboxone 2 mg-0.5 mg Sl Film] Allergies Allergy/AdvReac Type Severity Reaction Status Date / Time lorazepam [From Ativan] AdvReac Unknown Verified 08/15/23 11:43 Physical Exam Osteopathic Statement: *. No significant issues noted on an osteopathic structural exam other than those noted in the History and Physical/Consult. Vitals: Vital Signs Temp Pulse Pulse Resp BP BP Pulse Ox 08/15/23 15:00 98.7 F 117 H 20 127/67 96 08/15/23 14:54 124 H 08/15/23 14:43 120 H 08/15/23 12:02 94 L 08/15/23 12:00 122/92 89 L 08/15/23 11:00 108 H 12 121/87 94 L 08/15/23 10:35 121 H 08/15/23 10:20 120 H 08/15/23 10:00 111 H 12 141/94 94 L 08/15/23 09:37 98.5 F 115 H 26 H 165/112 95 Intake and Output 08/15/23 08/15/23 08/15/23 06:59 14:59 22:59 Other: Weight 102.058 kg Results CBC & Chem 7: 08/15/23 10:09 08/15/23 10:09 Labs: Abnormal Lab Results - Last 24 Hours (Table) 08/15/23 08/15/23 08/15/23 Range/Units 10:09 10:09 10:09 WBC 14.8 H (3.8-10.6) k/uL Neutrophils # 12.1 H (1.3-7.7) k/uL Creatinine 0.65 L (0.66-1.25) mg/dL Glucose 112 H (74-99) mg/dL Plasma Lactic Acid Eliezer 2.4 H* (0.7-2.0) mmol/L Total Protein 8.4 H (6.3-8.2) g/dL 08/15/23 08/15/23 Range/Units 12:43 15:54 WBC (3.8-10.6) k/uL Neutrophils # (1.3-7.7) k/uL Creatinine (0.66-1.25) mg/dL Glucose (74-99) mg/dL Plasma Lactic Acid Eliezer 2.8 H* 4.4 H* (0.7-2.0) mmol/L Total Protein (6.3-8.2) g/dL
[2023-08-15] MEDS: methylPREDNISolone SOD SUCCI 125 MG/2 ML VIAL IV SCH (18:19)
[2023-08-15] MEDS: SYMBICORT 160-4.5 MCG INHALER INHALATION SCH (21:38)
[2023-08-16] MEDS: SODIUM CHLORIDE 0.9% 1,000 ML IV ONE (00:53)
[2023-08-16] MEDS: SODIUM CHLORIDE 0.9% 1,000 ML IV SCH (00:53)
[2023-08-16 08:17] VITALS: TEMP 97.9
[2023-08-16 08:31] LABS: Basophils # (A) 0.03 X 10*3/uL (0.00-0.10); Basophils % (A) 0.2 %; Eosinophils # (A) 0 X 10*3/uL (0.04-0.35); Eosinophils % (A) 0 %; HCT 40.5 % (39.6-50.0); Lymphocytes # (A) 0.99 X 10*3/uL (0.90-5.00); Lymphocytes % (A) 5.3 %; MCH 27.1 pg (27.0-32.0); MCHC 32.1 g/dL (32.0-37.0); MCV 84.6 FL (80.0-97.0); Mean Platelet Volume 10.3 FL (9.5-12.2); Monocytes # (A) 0.25 X 10*3/uL (0.20-1.00); Monocytes % (A) 1.3 %; NRBC Per 100 WBC 0 X 10*3/uL (0.00-0.01); Neutrophils # (A) 17.38 X 10*3/uL (1.80-7.70); Neutrophils % (A) 92.4 %; Platelet Count 310 X 10*3/uL (140-440); RBC 4.79 X 10*6/uL (4.40-5.60); RDW 13.8 % (11.5-14.5)
[2023-08-16 08:52] LABS: BUN/Creat Ratio 19.14 Ratio (12.00-20.00); Blood Urea Nitrogen 13.4 mg/dL (9.0-27.0); Calcium 9.1 mg/dL (8.7-10.3); Carbon Dioxide 22.1 mmol/L (21.6-31.8); Chloride 107 mmol/L (96-109); Glucose 152 mg/dL (70-110); Potassium 4.5 mmol/L (3.5-5.5); Sodium 141 mmol/L (135-145)
[2023-08-16] MEDS: predniSONE 20 MG TAB PO SCH (08:57)
--- NOTE | 2023-08-16 11:54 | P.PN ---
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 He has been not not been following with a primary care physician due to lack of insurance. He does have a nebulizer and albuterol solution and some older albuterol HFA available. He presented here to the emergency room earlier this morning with complaints of increasing shortness of breath chest tightness and wheezing. He had a sore throat a couple of days ago. He also was exposed to significant drywall dust at his place of work. No fever or chills. Nonproductive cough. No hemoptysis. Chest x-ray revealed no acute pulmonary process. White count 14.8. Hemoglobin 13.7. Platelets 274. Sodium 143. Potassium 3.7. Bicarb 25. BUN 15. Creatinine 0.65. Glucose 112. Viral screen negative. He is seen today in consultation in the emergency department. Currently sitting up in a chair. Awake and alert in no acute distress. He is breathing a bit easier this afternoon. He was initiated on the neb inhalations, Tessalon Perles and Solu- Medrol. He has normal saline at 75 MLS per hour. The patient is seen today August 16, 2023 in follow-up in the emergency department. He is currently sitting up in the stretcher. Awake and alert in no acute distress. Breathing quite a bit better today compared to yesterday. He is maintaining O2 saturations in the 90s on room air. He has some clear productive phlegm. No fever or chills. He has been afebrile. Less tachycar dic. He is continued on Symbicort, DuoNeb inhalations, Tessalon Perles and Solu-Medrol. White count 18.8. Hemoglobin 13.0. Platelets 310. Sodium 141. Potassium 4.5. Bicarb 22. BUN 13. Creatinine 0.7. Glucose 152. Objective - Vital Signs Vital signs: Vital Signs Temp 97.9 F 08/16/23 08:05 Pulse 109 H 08/16/23 08:05 Resp 18 08/16/23 08:05 BP 132/85 08/16/23 08:05 Pulse Ox 94 L 02/23/24 08:05 FiO2 Intake & Output 08/15/23 08/16/23 08/16/23 18:59 06:59 18:59 Weight 102.058 kg - Exam GENERAL EXAM: Alert, 38-year-old male, on room air, comfortable in no apparent distress. HEAD: Normocephalic. EYES: Normal reaction of pupils, equal size. NOSE: Clear with pink turbinates. THROAT: No erythema or exudates. NECK: No masses, no JVD. CHEST: No chest wall deformity. LUNGS: Equal air entry with faint end expiratory wheeze. CVS: S1 and S2 normal with no audible murmur, regular rhythm. ABDOMEN: No hepatosplenomegaly, normal bowel sounds, no guarding or rigidity. SPINE: No scoliosis or deformity SKIN: No rashes CENTRAL NERVOUS SYSTEM: No focal deficits, tone is normal in all 4 extremities. EXTREMITIES: There is no peripheral edema. No clubbing, no cyanosis. Peripheral pulses are intact. - Labs CBC & Chem 7: 08/16/23 04:32 08/16/23 04:32 Labs: Abnormal Lab Results - Last 24 Hours (Table) 08/15/23 08/15/23 08/15/23 Range/Units 12:43 15:54 19:44 WBC (4.50-10.00) X 10*3/uL Immature Gran # (0.00-0.04) X 10*3/uL Neutrophils # (1.80-7.70) X 10*3/uL Eosinophils # (0.04-0.35) X 10*3/uL Glucose (70-110) mg/dL Plasma Lactic Acid Eliezer 2.8 H* 4.4 H* 2.7 H* (0.7-2.0) mmol/L 08/15/23 08/16/23 08/16/23 Range/Units 22:45 04:32 04:32 WBC 18.80 H (4.50-10.00) X 10*3/uL Immature Gran # 0.15 H (0.00-0.04) X 10*3/uL Neutrophils # 17.38 H (1.80-7.70) X 10*3/uL Eosinophils # 0 L (0.04-0.35) X 10*3/uL Glucose 152 H (70-110) mg/dL Plasma Lactic Acid Eliezer 3.4 H* (0.7-2.0) mmol/L Assessment and Plan Assessment: Acute exacerbation of mild intermittent chronic bronchial asthma. Viral screen negative. Chest x-ray is clear History of papilloma of the vocal cords with previous surgery Former smoker quit 5 years ago Plan: The patient was seen and evaluated Labs and medications reviewed Currently stable and on room air Plan for discharge from the pulmonary standpoint Continue Symbicort, albuterol Complete a prednisone taper Follow-up in our office in 1 week I have personally seen and examined the patient, performed the documentation and the assessment and plan as written. Number of minutes spent on the visit: 10.
[2023-08-16 12:37] VITALS: BP 147/89; PULSE 100; RESP 22
--- NOTE | 2023-08-16 13:54 | P.DS ---
Providers Date of admission: 08/15/23 11:27 Expected date of discharge: 08/16/23 Attending physician: Dionte Armstrong MD Consults: 08/15/23 11:26 Consult Physician Routine Consulting Provider: Kaushal Hayes Reason/Comments: asthma Do you want consulting provider notified?: Yes Primary care physician: Stated None Hospital Course: Acute asthma exacerbation Hospital Course: 38-year-old male with a medical history of chronic bronchial asthma presented for evaluation of dyspnea. In the emergency room, patient was afebrile, 127/67, heart rate 117, 96% on room air.CBC was remarkable for leukocytosis of 14.8. Basic metabolic panel was unremarkable. Liver function test showed elevated total protein at 8.4. Lactic acid was 2.4, the increased to 2.8 then 4.4 with the initiation of nebulizer treatment. Influenza A, B, RSV, COVID were negative. EKG demonstrated sinus tachycardia without evidence of ischemia. Chest x-ray did not demonstrate any acute pulmonary process. Pulmonology was consulted and agreed with the management as initiated on admission including steroids, nebulizers. Pt was noted to ahve rapid improvement after one night of observation and no further wheezing. He was cleared by pulmonology with f/u in their clinic for further PFT testing. He was prescribed albuterol, symbicort, and 3 more days of prednisone. I spent 32 minutes coordinating this discharge on 08/16 Gen: In NAD, non-toxic HEENT: normocephalic, atraumatic, hearing acuity is intant, mucous membranes moist CVS: perfusing all extremities well, no pitting edema, Respiratory: symmetric chest expansion, no accessory muscle use, diffuse end expiratory wheezing GI: soft, NTTP, ND, : no suprapubic tenderness, no CVA tenderness MSK/Derm: no rashes, cyanosis Neuro: CN II-XII intact, no motor weakness, Psych: cooperative, euthymic mood, judgment and insight is intact Patient Condition at Discharge: Good Plan - Discharge Summary New Discharge Prescriptions: New predniSONE [Deltasone] 40 mg PO DAILY #6 tab Budesonide-Formot 160-4.5 Mcg [Symbicort 160-4.5 Mcg Inhaler] 2 puff INHALATION RT-BID #1 each Continue Albuterol Nebulized [Ventolin Nebulized] 2.5 mg INHALATION RT-Q4H PRN PRN Reason: Shortness Of Breath Buprenorphine HCl/Naloxone HCl [Suboxone 2 mg-0.5 mg Sl Film] 1 film SL DAILY Albuterol Sulfate [Albuterol Sulfate Hfa] 2 puff PO RT-Q6H PRN #1 each PRN Reason: Shortness Of Breath Discharge Medication List Albuterol Nebulized [Ventolin Nebulized] 2.5 mg INHALATION RT-Q4H PRN 08/15/23 [History] Buprenorphine HCl/Naloxone HCl [Suboxone 2 mg-0.5 mg Sl Film] 1 film SL DAILY 08/15/23 [History] Albuterol Sulfate [Albuterol Sulfate Hfa] 2 puff PO RT-Q6H PRN #1 each 08/16/23 [Rx] Budesonide-Formot 160-4.5 Mcg [Symbicort 160-4.5 Mcg Inhaler] 2 puff INHALATION RT-BID #1 each 08/16/23 [Rx] predniSONE [Deltasone] 40 mg PO DAILY #6 tab 08/16/23 [Rx] Follow up Appointment(s)/Referral(s): Kaushal Hayes DO [Doctor of Osteopathic Medicine] - 1 Week [facility] [NON-STAFF] - 1 Week (Establish with new PCP. This clinic serves individuals with no insurance, only requirement is to have a state issued ID card for [facility] address. ) Patient Instructions/Handouts: Asthma (DC), Anxiety (ED) Discharge/Stand Alone Forms: Community Resources, Outpatient Counseling Discharge Disposition: HOME SELF-CARE
== END 2023-08-16 12:21 | disposition home or self-care (01) ==
LOC: EC 09:32 → 6NMEDSUR 11:27 → 5NMEDONC 17:59
PROVIDERS: ADMIT Internal Medicine; ATTEND Internal Medicine
DX: J45.901 Unspecified asthma with (acute) exacerbation (principal); R00.0 Tachycardia, unspecified; Z11.52 Encounter for screening for COVID-19; Z79.899 Other long term (current) drug therapy
CPT/HCPCS: 96376; 96361 ×2; 96365; 96375; 99285; 36415; 94640 ×4; 94760; 93005; 80053; 80048; 83605 ×2; 83735; 85025 ×2; 87636; 71046; G0378 ×2; J2930 ×2; J3475; J7512

== ENCOUNTER 2023-12-09 13:19 | Emergency (ER) | payer OTHER ==
[2023-12-09 13:29] VITALS: TEMP 97.7
--- NOTE | 2023-12-09 14:19 | ED ---
General Adult HPI - General Chief complaint: Abdominal Pain Stated complaint: kidney stone Time Seen by Provider: 12/09/23 13:30 Source: patient, RN notes reviewed, old records reviewed Mode of arrival: wheelchair - History of Present Illness Initial comments: This is a 38-year-old male who presents to the emergency department the past medical history significant for kidney stone. Patient presents today because 1:00 this morning started having left-sided flank pain that radiated to his abdomen. Patient denies any hematuria or dysuria. Patient denies any fever or chills. Patient [place] any injury. Patient states the pain is similar to the pain he had when he had his kidney stone. - Related Data Home Medications Medication Instructions Recorded Confirmed Asmanex (Unknown Dose) 2 puff INHALATION RT-BID 12/09/23 12/09/23 Previous Rx's Medication Instructions Recorded Albuterol Sulfate [Albuterol 2 puff PO RT-Q6H PRN #1 each 08/16/23 Sulfate Hfa] Ketorolac [Toradol] 10 mg PO Q8HR #15 tab 12/09/23 Tamsulosin [Flomax] 0.4 mg PO DAILY #10 cap 12/09/23 Allergies Allergy/AdvReac Type Severity Reaction Status Date / Time lorazepam [From Ativan] AdvReac agression Verified 12/09/23 15:29 and confusion Review of Systems ROS Statement: Those systems with pertinent positive or pertinent negative responses have been documented in the HPI. ROS Other: All systems not noted in ROS Statement are negative. Past Medical History Past Medical History: Asthma History of Any Multi-Drug Resistant Organisms: None Reported Additional Past Surgical History / Comment(s): VOCAL CORD SURGERY Past Psychological History: No Psychological Hx Reported Smoking Status: Never smoker Past Alcohol Use History: None Reported Past Drug Use History: None Reported, Marijuana General Exam - General Exam Comments Initial Comments: GENERAL: Patient is well-developed and well-nourished. Patient is nontoxic and well- hydrated and is in moderate distress. ENT: Neck is soft and supple. No significant lymphadenopathy is noted. Oropharynx is clear. Moist mucous membranes. Neck has full range of motion without eliciting any pain. EYES: The sclera were anicteric and conjunctiva were pink and moist. Extraocular movements were intact and pupils were equal round and reactive to light. Eyelids were unremarkable. PULMONARY: Unlabored respirations. Good breath sounds bilaterally. No audible rales rhonchi or wheezing was noted. CARDIOVASCULAR: There is a regular rate and rhythm without any murmurs gallops or rubs. ABDOMEN: Soft and nontender with normal bowel sounds. SKIN: Skin is clear with no lesions or rashes and otherwise unremarkable. NEUROLOGIC: Patient is alert and oriented x3. Cranial nerves II through XII are grossly intact. Motor and sensory are also intact. Normal speech, volume and content. Symmetrical smile. MUSCULOSKELETAL: Normal extremities with adequate strength and full range of motion. LYMPHATICS: No significant lymphadenopathy is noted PSYCHIATRIC: Normal psychiatric evaluation. Course Vital Signs 12/09/23 12/09/23 13:25 13:29 Temperature 97.7 F Pulse Rate 85 95 Respiratory 18 20 Rate Blood Pressure 143/90 140/98 O2 Sat by Pulse 98 98 Oximetry Medical Decision Making - Medical Decision Making Was pt. sent in by a medical professional or institution (, PA, CLIENT SUPPORT PROFESSIONAL, urgent care, hospital, or skilled nursing...) When possible be specific @ -No Did you speak to anyone other than the patient for history (EMS, parent, family, police, friend...)? What history was obtained from this source @ -No Did you review nursing and triage notes (agree or disagree)? Why? @ -I reviewed and agree with nursing and triage notes Were old charts reviewed (outside hosp., previous admission, EMS record, old EKG, old radiological studies, urgent care reports/EKG's, skilled nursing records)? Report findings @ -No old charts were reviewed Differential Diagnosis (chest pain, altered mental status, abdominal pain women, abdominal pain men, vaginal bleeding, weakness, fever, dyspnea, syncope, headache, dizziness, GI bleed, back pain, seizure, CVA, palpatations, mental hea lth, musculoskeletal)? @ -Differential Abdominal Pain Men: Appendicitis, cholecystitis, diverticulosis, ischemic bowel, pancreatitis, hepatitis, UTI, gastroenteritis, AAA, incarcerated hernia, bowel obstruction, constipation, inflammatory bowel, hepatitis, peptic ulcer disease, splenic infarction, perforated viscus, testicular torsion, this is not meant to be an all-inclusive list EKG interpreted by me (3pts min.). @ -As above X-rays interpreted by me (1pt min.). @ -None done CT interpreted by me (1pt min.). @ -The abdomen pelvis shows a left-sided kidney stone 3 mm with mild hydro U/S interpreted by me (1pt. min.). @ -None done What testing was considered but not performed or refused? (CT, X-rays, U/S, labs)? Why? @ -None What meds were considered but not given or refused? Why? @ -None Did you discuss the management of the patient with other professionals (professionals i.e. DrSunshine, PA, CLIENT SUPPORT PROFESSIONAL, lab, RT, psych nurse, social media content specialist, anthropology faculty member, teacher, geographic area intelligence officer, nurse outreach case manager)? Give summary @ -With the radiologist to get them to read the CAT scan Was smoking cessation discussed for >3mins.? @ -No Was critical care preformed (if so, how long)? @ -No Were there social determinants of health that impacted care today? How? (Homelessness, low income, unemployed, alcoholism, drug addiction, transportation, low edu. Level, literacy, decrease access to med. care, fdc, rehab)? @ -No Was there de-escalation of care discussed even if they declined (Discuss DNR or withdrawal of care, Hospice)? DNR status @ -No What co-morbidities impacted this encounter? (DM, HTN, Smoking, COPD, CAD, Canc er, CVA, ARF, Chemo, Hep., AIDS, mental health diagnosis, sleep apnea, morbid obesity)? @ -None Was patient admitted / discharged? Hospital course, mention meds given and route, prescriptions, significant lab abnormalities, going to OR and other pertinent info. @ -Patient was given Dilaudid Zofran and Toradol along with some normal saline and was feeling completely better and was pain-free when I discharged him Undiagnosed new problem with uncertain prognosis? @ -No Drug Therapy requiring intensive monitoring for toxicity (Heparin, Nitro, Insulin, Cardizem)? @ -No Were any procedures done? @ -No Diagnosis/symptom? @ -Kidney stone Acute, or Chronic, or Acute on Chronic? @ -Acute Uncomplicated (without systemic symptoms) or Complicated (systemic symptoms)? @ -Complicated Side effects of treatment? @ -No Exacerbation, Progression, or Severe Exacerbation? @ -No Poses a threat to life or bodily function? How? (Chest pain, [place], [place], pneumonia, PE, COPD, DKA, ARF, appy, cholecystitis, CVA, Diverticulitis, Homicidal, Suicidal, threat to staff... and all critical care pts) @ -No - Lab Data Result diagrams: 12/09/23 14:17 12/09/23 14:17 Lab Results 12/09/23 12/09/23 12/09/23 Range/Units 14:17 14:17 14:17 WBC 16.3 H (3.8-10.6) k/uL RBC 5.38 (4.30-5.90) m/uL Hgb 14.8 (13.0-17.5) gm/dL Hct 45.6 (39.0-53.0) % MCV 84.8 (80.0-100.0) fL MCH 27.6 (25.0-35.0) pg MCHC 32.5 (31.0-37.0) g/dL RDW 13.5 (11.5-15.5) % Plt Count 315 (150-450) k/uL MPV 7.6 Neutrophils % 88 % Lymphocytes % 7 % Monocytes % 4 % Eosinophils % 0 % Basophils % 0 % Neutrophils # 14.4 H (1.3-7.7) k/uL Lymphocytes # 1.1 (1.0-4.8) k/uL Monocytes # 0.7 (0-1.0) k/uL Eosinophils # 0.0 (0-0.7) k/uL Basophils # 0.1 (0-0.2) k/uL Sodium 137 (137-145) mmol/L Potassium 5.2 H (3.5-5.1) mmol/L Chloride 103 (98-107) mmol/L Carbon Dioxide 23 (22-30) mmol/L Anion Gap 11 mmol/L BUN 22 H (9-20) mg/dL Creatinine 1.05 (0.66-1.25) mg/dL Est GFR (CKD-EPI)AfAm >90 (>60 ml/min/1.73 sqM) Est GFR (CKD-EPI)NonAf >90 (>60 ml/min/1.73 sqM) Glucose 119 H (74-99) mg/dL Calcium 10.0 (8.4-10.2) mg/dL Total Bilirubin 1.1 (0.2-1.3) mg/dL AST 36 (17-59) U/L ALT 27 (4-49) U/L Alkaline Phosphatase 74 (38-126) U/L Total Protein 8.6 H (6.3-8.2) g/dL Albumin 5.2 H (3.5-5.0) g/dL Amylase 49 (30-110) U/L Lipase 57 (23-300) U/L Urine Color Yellow Urine Appearance Turbid (Clear) Urine pH 6.0 (5.0-8.0) Ur Specific [place] 1.029 (1.001-1.035) Urine Protein Trace H (Negative) Urine Glucose (UA) Negative (Negative) Urine Ketones 1+ H (Negative) Urine Blood Small H (Negative) Urine Nitrite Negative (Negative) Urine Bilirubin Negative (Negative) Urine Urobilinogen <2.0 (<2.0) mg/dL Ur Leukocyte Esterase Negative (Negative) Urine RBC 11 H (0-5) /hpf Urine WBC 3 (0-5) /hpf Ur Squamous Epith Cells <1 (0-4) /hpf Urine Bacteria Rare H (None) /hpf Urine Mucus Moderate H (None) /hpf Disposition Clinical Impression: Kidney stone Disposition: HOME SELF-CARE Condition: Good Instructions (If sedation given, give patient instructions): Kidney Stones (ED) Prescriptions: Tamsulosin [Flomax] 0.4 mg PO DAILY #10 cap Ketorolac [Toradol] 10 mg PO Q8HR #15 tab Is patient prescribed a controlled substance at d/c from ED?: No Referrals: None,Stated [Primary Care Provider] - 1-2 days Jone Yanez MD [STAFF PHYSICIAN] - 1-2 days Time of Disposition: 17:57
[2023-12-09] MEDS: SODIUM CHLORIDE 0.9% 1,000 ML IV STA (14:32)
[2023-12-09] MEDS: KETOROLAC 15 MG/ML 1 ML VIAL IVP STA (14:33)
[2023-12-09] MEDS: ONDANSETRON 4 MG/2 ML VIAL IVP STA (14:33)
[2023-12-09] MEDS: HYDROmorphone 0.5 MG/0.5 ML SYRINGE IM STA (14:33)
[2023-12-09 14:35] LABS: Basophils # (A) 0.1 k/uL (0-0.2); Basophils % (A) 0 %; Eosinophils % (A) 0 %; HCT 45.6 % (39.0-53.0); HGB 14.8 gm/dL (13.0-17.5); Lymphocytes # (A) 1.1 k/uL (1.0-4.8); Lymphocytes % (A) 7 %; MCH 27.6 pg (25.0-35.0); MCHC 32.5 g/dL (31.0-37.0); MCV 84.8 fL (80.0-100.0); Mean Platelet Volume 7.6; Monocytes # (A) 0.7 k/uL (0-1.0); Monocytes % (A) 4 %; Neutrophils # (A) 14.4 k/uL (1.3-7.7); Neutrophils % (A) 88 %; Platelet Count 315 k/uL (150-450); RBC 5.38 m/uL (4.30-5.90); RDW 13.5 % (11.5-15.5); WBC 16.3 k/uL (3.8-10.6)
[2023-12-09 14:45] LABS: ALT 27 U/L (4-49); AST 36 U/L (17-59); African American GFR (CKD) >90 (>60 ml/min/1.73 sqM); Albumin 5.2 g/dL (3.5-5.0); Alkaline Phosphatase 74 U/L (38-126); Amylase 49 U/L (30-110); Anion Gap 11 mmol/L; Blood Urea Nitrogen 22 mg/dL (9-20); Carbon Dioxide 23 mmol/L (22-30); Chloride 103 mmol/L (98-107); Glucose 119 mg/dL (74-99); Lipase 57 U/L (23-300); Non-African American GFR(CKD) >90 (>60 ml/min/1.73 sqM); Potassium 5.2 mmol/L (3.5-5.1); Sodium 137 mmol/L (137-145); Total Bilirubin 1.1 mg/dL (0.2-1.3); Total Protein 8.6 g/dL (6.3-8.2)
[2023-12-09 14:48] LABS: Appearance,Urine Turbid (Clear); Bacteria,Urine Rare /hpf; Bilirubin,Urine Negative (Negative); Blood,Urine Small (Negative); Color,Urine Yellow; Glucose,Urine (UA) Negative (Negative); Ketones,Urine 1+ (Negative); Leukocyte Esterase,Urine Negative (Negative); Mucus,Urine Moderate /hpf; Nitrite,Urine Negative (Negative); Protein,Urine Trace (Negative); RBC,Urine 11 /hpf (0-5); Specific Gravity,Urine 1.029 (1.001-1.035); Squamous Epithelial Cell,Urine <1 /hpf (0-4); Urobilinogen,Urine <2.0 mg/dL (<2.0); WBC,Urine 3 /hpf (0-5)
--- NOTE | 2023-12-09 17:55 | CT ---
EXAMINATION TYPE: CT abdomen pelvis wo con DATE OF EXAM: 12/09/2023 COMPARISON: None HISTORY: left flank pain CT DLP: 923.4 mGycm Examination of the solid and hollow viscera is limited given the lack of contrast. FINDINGS: LUNG BASES: No evidence for nodule. No evidence for infiltrate. LIVER/GB: The gallbladder is unremarkable. No space-occupying hepatic lesion. PANCREAS: No pancreatic mass identified. No inflammatory process seen. SPLEEN: No evidence for splenomegaly. No intrasplenic lesions seen. ADRENALS: No adrenal nodules identified. No evidence for thickening. KIDNEYS: No evidence for renal mass. 3 mm left UVJ calculus resulting in mild left-sided hydronephros is. Mild renal edema. No hydronephrosis. BOWEL: Appendix has a normal appearance. No evidence of bowel obstruction. No inflammatory process. Lymph nodes: No evidence for adenopathy greater than 1 cm. Abdominal aorta: Atheromatous changes seen. No evidence for aneurysm. Genital organs: No significant abnormality. Other: No significant abnormality. IMPRESSION: 1. Mild Left Hydronephrosis Secondary To Obstructing 3 Mm Left Ureterovesicular Junction Ureteral 2. Hepatic Steatosis.
[2023-12-09 18:07] VITALS: PULSE 75; RESP 16
[2023-12-09 18:15] VITALS: BP 136/86
== END 2023-12-09 18:14 | disposition home or self-care (01) ==
LOC: EC 13:19
DX: N13.2 Hydronephrosis with renal and ureteral calculous obstruction (principal); Z88.8 Allergy status to other drugs, medicaments and biological substances
CPT/HCPCS: 36415; 74176; 80053; 81001; 82150; 83690; 85025; 96361; 96372; 96374; 96375; 99284